=== PATIENT | male | born 1955 | race African-American/Black ===

== ENCOUNTER 2020-06-06 15:28 | Inpatient (IN) ==
[2020-06-06 16:40] LABS: Basophils % 0.1 % (0.0-0.8); Hematocrit 43.4 VOL% (42.0-52.0); Hemoglobin 14.4 GM/DL (14.0-18.0); Immature Granulocytes % 0.5 %; Immature Granulocytes Absolute 0.06 #; Lymphocytes % 8.4 % (21.2-54.2); Mean Corpuscular HGB Conc 33.2 GM/DL (32-36); Mean Corpuscular Volume 94.1 FL (87-102); Mean Platelet Volume 10.7 FL (9.6-12.0); NRBC # 0.04 10*3/uL; Platelet Count 138 T/CUMM (130-400); Red Blood Count 4.61 MC/CUMM (3.8-5.5); Red Cell Distribution Width 13.2 % (9.3-17.3); White Blood Count 11.4 T/CUMM (4-12)
[2020-06-06 16:50] LABS: Alanine Aminotransferase 22 U/L (16-61); Alkaline Phosphatase 58 U/L (45-117); Aspartate Amino Transferase 24 U/L (0-37); Blood Urea Nitrogen 34 MG/DL (7-18); Calcium 8.8 MG/DL (8.5-10.1); Estimated Glom Filtration Rate 56 ML/MIN; Ferritin 237.8 ng/ml (26-388); Glucose 223 MG/DL (74-106); Osmolality,Calculated 280.4 MOS/KG (273-304); Total Protein 8.5 G/DL (6.4-8.3)
[2020-06-06 16:51] LABS: Troponin I 0.514 NG/ML (0.00-0.045)
[2020-06-06] MEDS ORDERED: BISACODYL 5 MG TABLET PO PRN (18:12)
[2020-06-06] MEDS ORDERED: guaiFENesin/DM ER 600-30 MG TABLET PO PRN (18:12)
[2020-06-06] MEDS ORDERED: NICOTINE 21 MG/24 HR PATCH TRANSDERM PRN (18:12)
[2020-06-06] MEDS ORDERED: ACETAMINOPHEN 325 MG TABLET PO PRN (18:12)
[2020-06-06] MEDS ORDERED: diphenhydrAMINE CAP 25 MG CAPSULE PO PRN (18:12)
[2020-06-06] MEDS ORDERED: CALCIUM CARBONATE CHEW 500 MG TABLET PO PRN (18:12)
[2020-06-06] MEDS ORDERED: GLUCAGON 1 MG VIAL IM PRN ×2 (18:12)
[2020-06-06] MEDS ORDERED: ALUMINUM/MAGNES/SIMETH MAX STR 30 ML UDCUP PO PRN (18:12)
[2020-06-06] MEDS ORDERED: DEXTROSE 50% 25 GM/50 ML VIAL IV PRN ×2 (18:12)
[2020-06-06] MEDS ORDERED: LACTULOSE 20 GM/30 ML UDCUP PO PRN (18:12)
[2020-06-06] MEDS ORDERED: ZALEPLON 5 MG CAPSULE PO PRN (18:12)
[2020-06-06] MEDS ORDERED: SIMETHICONE CHEW 125 MG TABLET PO PRN (18:12)
[2020-06-06] MEDS ORDERED: ONDANSETRON 4 MG/2 ML VIAL IV PRN (18:12)
[2020-06-06] MEDS ORDERED: hydrALAZINE 20 MG/1 ML VIAL IV PRN (18:12)
[2020-06-06] MEDS ORDERED: ENOXAPARIN 40 MG/0.4 ML SYRINGE SUBCUT SCH (18:30)
[2020-06-06] MEDS ORDERED: ENOXAPARIN 100 MG/ML SYRINGE SUBCUT ONE (19:30)
[2020-06-06] MEDS ORDERED: SODIUM CHLORIDE 0.9% 100 ML IV ONE (20:49)
[2020-06-06] MEDS: cefTRIAXone 1,000 MG in SYRINGE 1 EACH IV SCH (20:56)
[2020-06-06] MEDS: SODIUM CHLORIDE 0.9% 1,000 ML IV SCH (21:00)
[2020-06-06] MEDS: AZITHROMYCIN INJ 500 MG in SODIUM CHLORIDE 0.9% 250 ML IV SCH (21:15)
[2020-06-06] MEDS: INSULIN LISPRO 100 UNIT/ML SUBCUT SCH (21:22)
[2020-06-07] MEDS: ALBUTEROL INHALER 18 GM INH SCH ×3 (02:23→14:00)
[2020-06-07 05:33] LABS: Basophils % 0.1 % (0.0-0.8); Hematocrit 42.8 VOL% (42.0-52.0); Hemoglobin 14.2 GM/DL (14.0-18.0); Immature Granulocytes % 0.4 %; Immature Granulocytes Absolute 0.04 #; Lymphocytes # 0.7 10*3/uL (1.4-4.0); Lymphocytes % 6.8 % (21.2-54.2); Mean Corpuscular HGB Conc 33.2 GM/DL (32-36); Mean Corpuscular Volume 95.5 FL (87-102); NRBC # 0.05 10*3/uL; Neutrophils % 87.7 % (38.7-73.9); Platelet Count 135 T/CUMM (130-400); Red Blood Count 4.48 MC/CUMM (3.8-5.5); Red Cell Distribution Width 13.2 % (9.3-17.3); White Blood Count 10.8 T/CUMM (4-12)
[2020-06-07 06:04] LABS: Albumin 2.7 G/DL (3.4-5.0); Bilirubin,Total 0.9 MG/DL (0.2-1.0)
[2020-06-07] MEDS ORDERED: REMDESIVIR 200 MG in SODIUM CHLORIDE 0.9% 210 ML IV ONE (08:00)
[2020-06-07] MEDS: INSULIN LISPRO 100 UNIT/ML SUBCUT SCH ×4 (08:48→23:13)
[2020-06-07] MEDS: SODIUM CHLORIDE 0.9% 1,000 ML IV SCH ×2 (09:30→20:00)
[2020-06-07] MEDS ORDERED: POTASSIUM CHLORIDE 20 MEQ TABLET PO ONE (10:10)
[2020-06-07 10:26] LABS: Risk Ratio 4.35; VLDL CHOLESTEROL 19.8 MG/DL
[2020-06-07] MEDS: carvediloL 6.25 MG TABLET PO SCH ×2 (11:00→23:39)
[2020-06-07] MEDS: ASPIRIN EC 81 MG TABLET PO SCH (11:00)
[2020-06-07] MEDS: MORPHINE 4 MG/1 ML VIAL IV PRN ×2 (11:00→15:30)
[2020-06-07] MEDS: PANTOPRAZOLE 40 MG TABLET PO SCH (11:00)
[2020-06-07] MEDS: amLODIPine 10 MG TABLET PO SCH (11:00)
[2020-06-07] MEDS: ROSUVASTATIN 20 MG TABLET PO SCH (14:00)
[2020-06-07] MEDS ORDERED: SODIUM CHLORIDE 0.9% 1,000 ML IV PRN (14:50)
[2020-06-07] MEDS ORDERED: POTASSIUM CHLORIDE 20 MEQ TABLET PO PRN (15:50)
[2020-06-07] MEDS ORDERED: MELATONIN 3 MG TABLET PO PRN (15:51)
[2020-06-07] MEDS: ENOXAPARIN 40 MG/0.4 ML SYRINGE SUBCUT SCH (18:30)
[2020-06-07] MEDS: AZITHROMYCIN INJ 500 MG in SODIUM CHLORIDE 0.9% 250 ML IV SCH (23:37)
[2020-06-07] MEDS: cefTRIAXone 1,000 MG in SYRINGE 1 EACH IV SCH (23:39)
[2020-06-07] MEDS: ASCORBIC ACID 500 MG TABLET PO SCH (23:39)
[2020-06-08] MEDS: ALBUTEROL INHALER 18 GM INH SCH ×6 (02:50→21:44)
[2020-06-08 05:22] LABS: Basophils % 0.1 % (0.0-0.8); Hematocrit 37.5 VOL% (42.0-52.0); Immature Granulocytes % 0.5 %; Immature Granulocytes Absolute 0.04 #; Lymphocytes # 0.8 10*3/uL (1.4-4.0); Mean Corpuscular HGB Conc 31.7 GM/DL (32-36); Mean Corpuscular Volume 99.2 FL (87-102); Mean Platelet Volume 10.3 FL (9.6-12.0); Monocytes % 5.3 % (1.7-12.7); Neutrophils % 85.1 % (38.7-73.9); Platelet Count 139 T/CUMM (130-400); Red Blood Count 3.78 MC/CUMM (3.8-5.5); Red Cell Distribution Width 13.4 % (9.3-17.3); White Blood Count 8.5 T/CUMM (4-12)
[2020-06-08 05:30] LABS: Hemoglobin 11.9 GM/DL (14.0-18.0)
[2020-06-08 05:56] LABS: Albumin 2.2 G/DL (3.4-5.0); Calcium 7.5 MG/DL (8.5-10.1); Ferritin 315.1 ng/ml (26-388); Osmolality,Calculated 280.7 MOS/KG (273-304); Total Protein 5.9 G/DL (6.4-8.3)
[2020-06-08] MEDS: SODIUM CHLORIDE 0.9% 1,000 ML IV SCH ×2 (06:22→21:43)
[2020-06-08] MEDS: ASCORBIC ACID 500 MG TABLET PO SCH ×2 (09:18→21:45)
[2020-06-08] MEDS: CHOLECALCIFEROL 1,000 UNIT TABLET PO SCH (09:19)
[2020-06-08] MEDS: carvediloL 6.25 MG TABLET PO SCH ×2 (09:19→21:45)
[2020-06-08] MEDS: DEXAMETHASONE 4 MG/1 ML VIAL IV SCH (09:19)
[2020-06-08] MEDS: INSULIN LISPRO 100 UNIT/ML SUBCUT SCH ×4 (09:20→21:45)
[2020-06-08] MEDS: ASPIRIN EC 81 MG TABLET PO SCH (09:20)
[2020-06-08] MEDS: PANTOPRAZOLE 40 MG TABLET PO SCH (09:21)
[2020-06-08] MEDS: amLODIPine 10 MG TABLET PO SCH (09:21)
[2020-06-08] MEDS: CETIRIZINE 10 MG TABLET PO SCH (09:22)
[2020-06-08] MEDS: ROSUVASTATIN 20 MG TABLET PO SCH (09:27)
[2020-06-08] MEDS: REMDESIVIR 100 MG in SODIUM CHLORIDE 0.9% 100 ML IV SCH (09:30)
[2020-06-08] MEDS: ZINC GLUCONATE 50 MG TABLET PO SCH (10:45)
[2020-06-08] MEDS: ENOXAPARIN 40 MG/0.4 ML SYRINGE SUBCUT SCH (17:45)
[2020-06-08] MEDS: cefTRIAXone 1,000 MG in SYRINGE 1 EACH IV SCH (21:43)
[2020-06-08] MEDS: AZITHROMYCIN INJ 500 MG in SODIUM CHLORIDE 0.9% 250 ML IV SCH (21:44)
[2020-06-09] MEDS: ALBUTEROL INHALER 18 GM INH SCH ×4 (02:50→19:32)
[2020-06-09 06:15] LABS: Basophils % 0.1 % (0.0-0.8); Hematocrit 36.8 VOL% (42.0-52.0); Hemoglobin 11.7 GM/DL (14.0-18.0); Immature Granulocytes % 0.4 %; Immature Granulocytes Absolute 0.03 #; Lymphocytes # 0.6 10*3/uL (1.4-4.0); Lymphocytes % 7.8 % (21.2-54.2); Mean Corpuscular HGB Conc 31.8 GM/DL (32-36); Mean Corpuscular Volume 99.5 FL (87-102); Mean Platelet Volume 10.5 FL (9.6-12.0); Monocytes % 5.2 % (1.7-12.7); NRBC # 0.02 10*3/uL; Neutrophils % 86.5 % (38.7-73.9); Platelet Count 152 T/CUMM (130-400); Red Cell Distribution Width 13.6 % (9.3-17.3); White Blood Count 7.3 T/CUMM (4-12)
[2020-06-09 06:37] LABS: Ferritin 447.3 ng/ml (26-388)
[2020-06-09] MEDS: SODIUM CHLORIDE 0.9% 1,000 ML IV SCH ×2 (07:47→10:24)
[2020-06-09 08:24] LABS: Band Neutrophils 2 % (0-10); Hypochromasia 1+; Lymphocytes 6 % (20-55); Microcytosis 1+; Nucleated Red Blood Cells 2 (0-5); Segmented Neutrophils 91 % (50-85); Total Cells Counted 100
[2020-06-09 08:25] LABS: Platelet Estimate Adequate
[2020-06-09] MEDS ORDERED: FUROSEMIDE 40 MG/4 ML VIAL IV ONE (08:37)
[2020-06-09] MEDS: PANTOPRAZOLE 40 MG TABLET PO SCH (09:20)
[2020-06-09] MEDS: ROSUVASTATIN 20 MG TABLET PO SCH (09:20)
[2020-06-09] MEDS: DEXAMETHASONE 4 MG/1 ML VIAL IV SCH (09:20)
[2020-06-09] MEDS: CHOLECALCIFEROL 1,000 UNIT TABLET PO SCH (09:20)
[2020-06-09] MEDS: CETIRIZINE 10 MG TABLET PO SCH (09:20)
[2020-06-09] MEDS: INSULIN LISPRO 100 UNIT/ML SUBCUT SCH ×4 (09:20→21:16)
[2020-06-09] MEDS: ASPIRIN EC 81 MG TABLET PO SCH (09:20)
[2020-06-09] MEDS: ASCORBIC ACID 500 MG TABLET PO SCH ×2 (09:20→21:18)
[2020-06-09] MEDS: ZINC GLUCONATE 50 MG TABLET PO SCH (09:20)
[2020-06-09] MEDS: REMDESIVIR 100 MG in SODIUM CHLORIDE 0.9% 100 ML IV SCH (09:23)
[2020-06-09] MEDS: carvediloL 6.25 MG TABLET PO SCH (10:23)
[2020-06-09] MEDS: amLODIPine 10 MG TABLET PO SCH (10:23)
[2020-06-09] MEDS: ENOXAPARIN 40 MG/0.4 ML SYRINGE SUBCUT SCH (16:44)
[2020-06-09] MEDS: carvediloL 3.125 MG TABLET PO SCH (21:15)
[2020-06-09] MEDS: GABAPENTIN 100 MG CAPSULE PO SCH (21:17)
[2020-06-09] MEDS: cefTRIAXone 1,000 MG in SYRINGE 1 EACH IV SCH (21:19)
[2020-06-09] MEDS: AZITHROMYCIN INJ 500 MG in SODIUM CHLORIDE 0.9% 250 ML IV SCH (21:31)
[2020-06-10] MEDS: ALBUTEROL INHALER 18 GM INH SCH ×4 (00:16→19:17)
[2020-06-10 04:38] LABS: Calcium 8.2 MG/DL (8.5-10.1); Osmolality,Calculated 292.7 MOS/KG (273-304)
[2020-06-10 04:39] LABS: Basophils % 0.2 % (0.0-0.8); Eosinophils % 0.1 % (0.00-10.9); Hematocrit 39.4 VOL% (42.0-52.0); Hemoglobin 12.5 GM/DL (14.0-18.0); Immature Granulocytes % 0.5 %; Immature Granulocytes Absolute 0.05 #; Lymphocytes # 0.9 10*3/uL (1.4-4.0); Lymphocytes % 8.9 % (21.2-54.2); Mean Corpuscular HGB Conc 31.7 GM/DL (32-36); Mean Corpuscular Volume 100.3 FL (87-102); Mean Platelet Volume 10.5 FL (9.6-12.0); Monocytes % 5.6 % (1.7-12.7); NRBC # 0.03 10*3/uL; Neutrophils % 84.7 % (38.7-73.9); Platelet Count 181 T/CUMM (130-400); Red Blood Count 3.93 MC/CUMM (3.8-5.5); Red Cell Distribution Width 13.4 % (9.3-17.3); White Blood Count 10.2 T/CUMM (4-12)
[2020-06-10 08:54] LABS: Lymphocytes 4 % (20-55); Nucleated Red Blood Cells 2 (0-5); Platelet Estimate Normal; Segmented Neutrophils 89 % (50-85); Total Cells Counted 100
[2020-06-10 08:55] LABS: Macrocytosis Slight; Target Cells Slight
[2020-06-10 08:56] LABS: Polychromasia Slight
[2020-06-10] MEDS ORDERED: FUROSEMIDE 40 MG/4 ML VIAL IV ONE (09:16)
[2020-06-10] MEDS: INSULIN LISPRO 100 UNIT/ML SUBCUT SCH ×4 (09:17→21:15)
[2020-06-10] MEDS: carvediloL 3.125 MG TABLET PO SCH ×2 (09:17→19:59)
[2020-06-10] MEDS: ROSUVASTATIN 20 MG TABLET PO SCH (09:17)
[2020-06-10] MEDS: PANTOPRAZOLE 40 MG TABLET PO SCH (09:17)
[2020-06-10] MEDS: ASPIRIN EC 81 MG TABLET PO SCH (09:17)
[2020-06-10] MEDS: CETIRIZINE 10 MG TABLET PO SCH (09:17)
[2020-06-10] MEDS: ASCORBIC ACID 500 MG TABLET PO SCH ×2 (09:17→21:15)
[2020-06-10] MEDS: CHOLECALCIFEROL 1,000 UNIT TABLET PO SCH (09:17)
[2020-06-10] MEDS: ZINC GLUCONATE 50 MG TABLET PO SCH (09:17)
[2020-06-10] MEDS: DEXAMETHASONE 4 MG/1 ML VIAL IV SCH (09:17)
[2020-06-10] MEDS: REMDESIVIR 100 MG in SODIUM CHLORIDE 0.9% 100 ML IV SCH (09:20)
[2020-06-10] MEDS: amLODIPine 5 MG TABLET PO SCH (09:20)
[2020-06-10] MEDS: ENOXAPARIN 40 MG/0.4 ML SYRINGE SUBCUT SCH (16:45)
[2020-06-10] MEDS: GABAPENTIN 100 MG CAPSULE PO SCH (21:14)
[2020-06-10] MEDS: cefTRIAXone 1,000 MG in SYRINGE 1 EACH IV SCH (21:16)
[2020-06-10] MEDS: AZITHROMYCIN INJ 500 MG in SODIUM CHLORIDE 0.9% 250 ML IV SCH (21:33)
[2020-06-11] MEDS: ALBUTEROL INHALER 18 GM INH SCH ×3 (00:03→12:09)
[2020-06-11 06:33] LABS: Basophils % 0.3 % (0.0-0.8); Eosinophils # 0.1 10*3/uL (0.0-0.87); Eosinophils % 0.9 % (0.00-10.9); Hematocrit 39.2 VOL% (42.0-52.0); Hemoglobin 12.5 GM/DL (14.0-18.0); Immature Granulocytes % 0.8 %; Immature Granulocytes Absolute 0.06 #; Lymphocytes # 1.2 10*3/uL (1.4-4.0); Lymphocytes % 15.9 % (21.2-54.2); Mean Corpuscular HGB Conc 31.9 GM/DL (32-36); Mean Corpuscular Volume 99.7 FL (87-102); Mean Platelet Volume 11.2 FL (9.6-12.0); Monocytes % 7.8 % (1.7-12.7); Neutrophils % 74.3 % (38.7-73.9); Platelet Count 187 T/CUMM (130-400); Red Blood Count 3.93 MC/CUMM (3.8-5.5); Red Cell Distribution Width 13.2 % (9.3-17.3); White Blood Count 7.4 T/CUMM (4-12)
[2020-06-11 07:20] LABS: Calcium 8.2 MG/DL (8.5-10.1); Osmolality,Calculated 286.7 MOS/KG (273-304)
[2020-06-11 07:46] LABS: Anisocytosis 1+; Band Neutrophils 3 % (0-10); Eosinophils 2 % (0-10); Lymphocytes 14 % (20-55); Macrocytosis Slight; Platelet Estimate Normal; Segmented Neutrophils 75 % (50-85); Total Cells Counted 100
[2020-06-11] MEDS: INSULIN LISPRO 100 UNIT/ML SUBCUT SCH ×2 (07:54→12:09)
[2020-06-11] MEDS: ASCORBIC ACID 500 MG TABLET PO SCH (09:25)
[2020-06-11] MEDS: carvediloL 3.125 MG TABLET PO SCH (09:25)
[2020-06-11] MEDS: amLODIPine 5 MG TABLET PO SCH (09:25)
[2020-06-11] MEDS: ZINC GLUCONATE 50 MG TABLET PO SCH (09:25)
[2020-06-11] MEDS: ROSUVASTATIN 20 MG TABLET PO SCH (09:25)
[2020-06-11] MEDS: ASPIRIN EC 81 MG TABLET PO SCH (09:25)
[2020-06-11] MEDS: DEXAMETHASONE 4 MG/1 ML VIAL IV SCH (09:25)
[2020-06-11] MEDS: PANTOPRAZOLE 40 MG TABLET PO SCH (09:25)
[2020-06-11] MEDS: CETIRIZINE 10 MG TABLET PO SCH (09:25)
[2020-06-11] MEDS: CHOLECALCIFEROL 1,000 UNIT TABLET PO SCH (09:25)
[2020-06-11] MEDS: REMDESIVIR 100 MG in SODIUM CHLORIDE 0.9% 100 ML IV SCH (09:28)
[2020-06-11 11:30] VITALS: BP 138/87
== END 2020-06-11 14:25 | disposition home health service (06) | DRG 177 ==
LOC: N.ED 15:28 → N.EDINP 23:33 → N.2E 06-07 19:17
PROVIDERS: ADMIT Internal Medicine; ATTEND Internal Medicine